=== PATIENT | female | born 1980 | race Caucasian/White ===

== ENCOUNTER 2023-11-17 06:29 | Day surgery (SDC) | payer OTHER, SELFPAY ==
[2023-11-17] VITALS (11 sets, daily range): BP systolic 99–171; BP diastolic 53–99; BMI 37.3
[2023-11-17] MEDS: TYLENOL 1000 MG PO (09:14)
[2023-11-17] MEDS: NORMOSOL-R 1000 IV (09:17)
--- NOTE | 2023-11-17 10:21 | W.SUR.PREOP ---
Pre-Operative Surgical Note
-
I have examined this patient prior to the performance of the scheduled procedure.
The patient's condition is unchanged from the time of the current History and
Physical and the patient is able to undergo the scheduled procedure.
--- NOTE | 2023-11-17 10:21 | W.IMMPOSTOP ---
Surgical Immed Post Op Note
-
Primary Surgeon: Thompson Tang MD
Assisting Surgeon: None
Pre-op Diagnosis: Biliary colic
Post-op Diagnosis: Same
Procedure Performed: Laparoscopic cholecystectomy with cholangiogram
Anesthesia Type: General
Specimen / Cultures: Gallbladder and contents
Estimated Blood Loss: 3 cc
Complications: None
Operative Findings: Fairly normal-appearing gallbladder. Critical view of safety obtained prior to cholangiogram which demonstrated no defects in the biliary tree.
--- NOTE | 2023-11-17 10:22 | OR.RPT ---
Operative Report
Operative Report
Patient Name: Nidhi Elam
: 1980
Date of Operation: 11/17/2023
Preoperative Diagnosis: Symptomatic Cholelithiasis
Postoperative Diagnosis: Same
Procedure(s):
Laparoscopic Cholecystectomy with Cholangiogram
Surgeon(s):
Dr. Tang
Assistant To The Vice President(s):
CASANDRA Rodriguez
Anesthesia: General
Estimated Blood Loss: 3 cc
Urine Output: None
Drains/Lines/Implants: None
Specimens:
1. Gallbladder and contents
HPI/Surgical Indications:
This is a 43year old female who presents with abdominal pain. Exam, labs and imaging are consistent with symptomatic cholelithiasis. Risks/Benefits/Alternatives were discussed at length, and the patient agreed to proceed with surgery.
Findings:
The patient was noted to have some evidence of gallbladder inflammation noted by flimsy omental adhesions. A Critical View of Safety was obtained. Cholangiogram showed no filling defects in the biliary system with the Left, Right Anterior, Right
posterior hepatic ducts, CHD, cystic duct and CBD all identified. There was brisk flow of dye into the duodenum.
Procedure Description:
The patient was brought to the Operating Room and placed in the supine position. IV antibiotics were infused and sequential compression devices were confirmed to be on. Following uneventful induction of general endotracheal anesthesia, an
orogastric tube was placed. The abdomen was prepped and draped in the usual sterile fashion. The abdomen was entered using a left subcostal Veress technique followed by a 5 mm Optiview right upper quadrant trocar. Pneumoperitoneum to 15 mmHg
pressure was obtained without difficulty and we confirmed that no injury had occurred during our entry. The patient was positioned in reverse Trendelenburg and rotated with the right side up slightly. Two 5mm trocars were then placed along the right
subcostal margin, followed by an 11 mm trocar in the epigastrium. A locking grasping forceps was placed on the fundus of the gallbladder where it was then retracted cephalad and to the right. Using appropriate grasping instruments, the peritoneum
overlying the triangle of Calot was incised. The cystic duct/gallbladder junction was identified, dissected circumferentially. The cystic artery was identified medially and was dissected circumferentially. A critical view was obtained. A clip
was then placed on the cystic duct/gallbladder junction and an intraoperative cholangiogram performed using fluoroscopy, which showed good flow of dye into the duodenum. There were no intra- or extrahepatic bile duct filling defects. The biliary
anatomy appeared normal. Following completion of the cholangiogram, the catheter was removed. Two clips were then placed proximally on the cystic duct and the duct divided. Two clips were placed proximally and one distally on the cystic artery,
and the artery was divided. Remaining soft tissue attachments of the gallbladder to the liver bed were then divided using electrocautery. There was no spillage of bile or stones. The gallbladder bed was inspected and excellent hemostasis was
obtained. The gallbladder was extracted through the 11 mm trocar site using an endocatch bag. The abdomen was again irrigated and excellent hemostasis was assured. All remaining trocars were then removed and the pneumoperitoneum was evacuated.
The 11 mm trocar site was closed using a figure of 8 of 0 PDS. All trocar sites were closed at the skin level using 4-0 Monocryl followed by Dermabond. Overall, the patient tolerated the procedure well and was taken to the Recovery Room
postoperatively in stable condition.
I was the attending physician and performed the procedure with assistance from the [employer] above. I was present for all portions of the case
Thompson Tang MD
[2023-11-17] MEDS: DILAUDID 0.25 MG IV ×3 (10:48→11:16)
== END 2023-11-17 13:15 | disposition home or self-care (01) ==
LOC: SDS 06:29
PROVIDERS: ATTENDING PHYSICIAN Surgery; FAMILY PHYSICIAN Family Medicine
DX: K80.10 Calculus of gallbladder with chronic cholecystitis without obstruction (principal); K80.70 Calculus of gallbladder and bile duct without cholecystitis without obstruction
CPT/HCPCS: 47563; 88304; 74300; 76000; A4300

== ENCOUNTER → 2024-06-19 09:50 | Outpatient (REF) | payer OTHER, SELFPAY | LOC: HWRAD 09:50 | PROVIDERS: ATTENDING PHYSICIAN Obstetrics & Gynecology; FAMILY PHYSICIAN Family Medicine | DX: N93.9 Abnormal uterine and vaginal bleeding, unspecified (principal) | CPT/HCPCS: 76830; 76856 ==